=== PATIENT | male | born 1970 | race Caucasian/White ===

== ENCOUNTER → 2017-10-05 09:55 | Outpatient (CLI) | payer OTHER, SELFPAY ==
--- NOTE | 2017-10-05 09:58 | RAD_ITS ---
STUDY: X-RAY - LEFT ANKLE REASON FOR EXAM: Male, 47 years old. 3 week history of pain following injury. TECHNIQUE: 3 view(s) of the ankle. COMPARISON: None. FINDINGS: Normal visualized distal tibia and fibula. Normal medial and lateral malleoli. Normal tibiotalar articulation and ankle mortise. Plantar spur. The visualized subtalar, talonavicular, calcaneocuboid and tarsal articulations are normal. Soft tissue swelling. RAD/Ankle min 3 Views IMPRESSION: Soft tissue swelling. Electronically Signed: Michael Phelan MD at 14:12 EST Tel [phone], Service support ,
--- NOTE | 2017-10-05 09:58 | RAD_ITS ---
STUDY: X-RAY - LEFT FOOT CLINICAL: Male, 47 years old. Pain following injury. TECHNIQUE: 3 view(s) of the foot. COMPARISON: None. FINDINGS: There is a plantar calcaneal spur. Normal visualized subtalar, talonavicular, calcaneocuboid, tarsal and tarsometatarsal articulations. Normal metatarsi. Normal metatarsophalangeal joint of the great toe. Normal tibial and fibular sesamoid bones. Normal interphalangeal joint of the great toe. Normal phalanges of the great toe. Normal second through fifth metatarsophalangeal joints. Normal interphalangeal joints and phalanges of the lesser toes. Soft tissue swelling. RAD/Foot min 3 Views IMPRESSION: Soft tissue swelling. Electronically Signed: Michael Phelan MD at 14:12 EST Tel [phone], Service support ,
== END ==
PROVIDERS: Visit Provider Nurse Practitioner Family
DX: S99.922A Unspecified injury of left foot, initial encounter (principal); X58.XXXA Exposure to other specified factors, initial encounter
CPT/HCPCS: 73610; 73630

== ENCOUNTER 2019-02-25 09:47 | Emergency (ER) | payer OTHER, SELFPAY ==
[2019-02-25 09:49] VITALS: BP 186/107; PULSE 96; RESP 19; TEMP 36.8; O2SAT 98; BMI 33.9
--- NOTE | 2019-02-25 10:00 | RAD_ITS ---
STUDY: X-RAY CHEST REASON FOR EXAM: Male, 48 years old. Chest pain TECHNIQUE: Single AP portable view of the chest. COMPARISON: 06/12/2017 FINDINGS: The lungs are clear and expanded. There is no demonstrated pleural abnormality. Normal size heart. Normal mediastinum and laurel. Normal visualized pulmonary arteries. Normal visualized aortic arch and descending thoracic aorta. Normal visualized thoracic spine. Normal visualized ribs, clavicles, and shoulders. There is no demonstrated abnormality of the visualized soft tissue structures of the upper abdomen. RAD/Chest 1 View (Portable) IMPRESSION: Normal x-ray examination of the chest. Electronically Signed: Hitesh Herman DO at 11:12 EDT Tel , Service support ,
--- NOTE | 2019-02-25 10:00 | EKG12_ITS ---
Test Reason : CP Blood Pressure : / mmHG Vent. Rate : 096 BPM Atrial Rate : 096 BPM P-R Int : 158 ms QRS Dur : 094 ms QT Int : 368 ms P-R-T Axes : 049 018 031 degrees QTc Int : 464 ms Normal sinus rhythm Normal ECG Confirmed by GWEN MENDEZ, JOAQUIM ([id number]), film editor MAGGIE HI ([id number]) on 02/26/2019 7:43:26 AM Referred By: ALTAGRACIA Confirmed By:JOAQUIM HIDALGO MD
--- NOTE | 2019-02-25 10:07 | ED.VISSUMM ---
- ER Visit Summary Date of Service: 02/25/19 Chief Complaint: Right-sided chest pain History of Present Illness: The patient is a 48 M past medical history. Prior splenectomy due to trauma. He states yesterday he was at the [employer] game he started having right-sided chest pain. Nothing specifically made it better or worse. Is not pleuritic. He has had no hemoptysis. He is never had a stress test or heart cath. His dad has significant cardiac history. Patient is never had a DVT or PE. No recent travel, surgery or immobilization. No leg pain or swelling. He denies any recent exertional chest pain or exertional shortness of breath. Physical Examination: Middle-aged male no acute distress vital signs stable afebrile. Initial blood pressure 186/107. Pulse ox 90% on room air no signs of hypoxia. HEENT exam unremarkable. Neck nontender. Lungs clear to auscultation bilaterally. Heart regular rhythm no murmur. Chest wall nontender. Abdomen soft nontender. Patient moving all 4 extremities. Calves are nontender without edema or cords. Equal symmetrical radial pulses. Neurologically is awake and alert with no focal motor deficits. Test Results: EKG shows a sinus rhythm rate 96 with no signs of CA or ischemia. Unchanged from prior EKG from June 2017. CBC normal. White count 8. Hemoglobin 15. Chemistries normal normal creatinine and gap. Troponin normal. Chest x-ray shows normal cardiac silhouette mediastinum read both by myself and the radiologist. Emergency Department Course and Treatment: Patient undergo cardiac work-up and will receive oral aspirin. Treatment Plan: Repeat exam patient is doing well at 1447. Given that the pain is not exertional. Is not associated with dyspnea. And he really has limited cardiac risk factors comfortable with him being discharged to home with outpatient follow-up and will encourage him to follow-up with his primary care physician and get outpatient stress testing Disposition: Discharge Impression: Acute right-sided chest pain of uncertain etiology This note was generated with [employer] dictation software. It may contain incorrect words, spelling, and punctuation that were not noted in review of the chart prior to signing ED Disposition - Plan for ED Patient: Referrals: Olya Chamberlain PA [Primary Care Provider] -
[2019-02-25 10:22] LABS: Absolute Lymphocyte Count 1.49 X10^3/ul (0.83-4.51); Absolute Neutrophil Count 6.5 X10^3/uL (2.0-7.7); Basophil# 0.07 X10^3/uL; Basophil% 0.8 % (0-1); Eosinophil# 0.03 X10^3/uL; Eosinophils% 0.3 % (0-5); Hematocrit 45.2 % (40-54); Hemoglobin 15.8 g/dl (13.0-16.5); Lymphocyte # 1.49 X10^3/ul (4.0); Mean Corpuscular Hgb 33.3 pg (27.0-32.0); Mean Corpuscular Volume 95.2 fL (80-94); Mean Platelet Vol. 8.8 fl (6.2-12.0); Monocyte# 0.61 X10^3/uL; Neutrophil # 6.53 X10^3/uL (2.7-7.7); Neutrophil % 74.8 % (47-70); Platelet Count 458 K/mm3 (150-450); RBC Distribution Width CV 13.8 % (11.6-14.6); RBC Distribution Width SD 47.5 fl (35.1-43.9); Red Blood Count 4.75 M/mm3 (4.6-6.2); White Blood Count 8.7 K/mm3 (4.4-11.0)
[2019-02-25 10:26] LABS: POSITIVE COUNT NO; POSITIVE DIFFERENTIAL NO; POSITIVE MORPHOLOGY NO
[2019-02-25 10:40] LABS: Anion Gap 7 (5-15); BUN 10 mg/dL (7-18); BUN/Creat Ratio 10.6 RATIO (10-20); Chloride 106 mmol/L (98-107); Creatinine, Serum 0.94 mg/dL (0.70-1.30); EST Glomerular Filtration Rate 90 mL/min (>60); Est Glom Filt Rate - Afr Amer 109 mL/min (>60); Glucose 110 mg/dL (74-106); Potassium 3.9 mmol/L (3.5-5.1); Sodium Level 137 mmol/L (136-145)
[2019-02-25 11:04] VITALS: BP 151/101; PULSE 70; RESP 19; O2SAT 97; O2SAT 98
[2019-02-25 12:52] VITALS: BP 162/92; PULSE 59; RESP 17; O2SAT 100
[2019-02-25 13:23] VITALS: BP 140/96; PULSE 70; RESP 16; O2SAT 95
[2019-02-25 14:03] VITALS: BP 162/98; PULSE 66; RESP 14; O2SAT 100
--- NOTE | 2019-02-25 14:51 | ED.DEP ---
ED Disposition - Plan for ED Patient: Disposition: Home or Assisted Living Instructions: CHEST PAIN, Uncertain Cause Referrals: Olya Chamberlain PA [Primary Care Provider] - As soon as possible Additional Instructions: Follow-up with primary care physician having outpatient stress testing. Return if feeling worse. All your labs, EKG and chest x-ray were unremarkable today.
[2019-02-25 15:00] VITALS: BP 165/97; PULSE 84; RESP 17; O2SAT 94
== END 2019-02-25 15:00 | disposition home or self-care (01) ==
PROVIDERS: Emergency Provider Emergency Medicine; Family Provider Physician Assistant; PCP Physician Assistant
DX: R07.89 Other chest pain (principal); Z90.81 Acquired absence of spleen; Z87.891 Personal history of nicotine dependence
CPT/HCPCS: 71045; 80048; 84484; 85025; 93005; 99284; A4216

== ENCOUNTER → 2023-04-20 | Outpatient (CLI) | payer OTHER, SELFPAY | END | disposition home or self-care (01) | PROVIDERS: PCP Physician Assistant; Visit Provider Physician Assistant | DX: G47.33 Obstructive sleep apnea (adult) (pediatric) (principal) | CPT/HCPCS: 95811 ==